=== PATIENT | female | born 1940 | race Two or more races ===

== ENCOUNTER 2023-02-13 18:33 | Emergency (ER) | payer OTHER ==
[~2023-02-13] VITALS: Ht 160 cm; Wt 71.7 kg
[~2023-02-13 18:33] MED LIST: INDERAL LA80 MG
[2023-02-13] MEDS ORDERED: LOSARTAN POTASS50 MG PO (18:57)
[2023-02-13] MEDS ORDERED: ZOLOFT25 MG PO (18:58)
[2023-02-13] MEDS ORDERED: SYNTHROID50 MCG PO (18:59)
[2023-02-13] MEDS ORDERED: CRESTOR20 MG PO (18:59)
[2023-02-13 23:27] LABS: HEMATOCRIT 38.4 % (36.0-45.00); HEMOGLOBIN 13.1 g/dL (12.0-15.00); MEAN CELL VOLUME 88.6 fL (80.00-100.00); MEAN CORPUSCULAR HEMOGLOBIN 30.2 pg (27.00-32.0); PLATELET COUNT 191 K/uL (150-450); RED BLOOD COUNT 4.34 M/uL (4.00-6.00); RED CELL DISTRIBUTION WIDTH 13.9 % (11.5-14.5)
[2023-02-13 23:34] LABS: URINE APPEARANCE Clear; URINE BILIRRUBIN Negative (NEGATIVE); URINE BLOOD Negative; URINE COLOR Yellow; URINE GLUCOSE Negative (NEGATIVE); URINE LEUKOCYTE Trace; URINE NITRATE Negative; URINE PROTEIN Negative (NEGATIVE); URINE UROBILINOGEN 0.2 E.U./dl
[2023-02-13 23:35] LABS: URINE BACTERIA 191.4 uL (0.0-1933); URINE EPITHELIAL CELLS 5.7 uL (0.0-38.8); URINE RBC 4.1 uL (0.0-20.8); URINE WBC 12.5 uL (0.0-23.2)
[2023-02-13 23:43] LABS: INR 0.98; PROTHROMBIN TIME 10.3 SECONDS (9.0-11.5)
[2023-02-13 23:45] LABS: CREATININE SERUM 0.73 mg/dL (0.55-1.02); GFR 76.51; POTASSIUM 3.55 mEq/L (3.5-5.1)
[2023-02-14] MEDS ORDERED: AMOX-CLAV 875-1 EAC1 PO (00:06)
== END 2023-02-14 00:31 | disposition home or self-care (01) ==
LOC: ER 18:34
PROVIDERS: General Practice
DX: L03.116 Cellulitis of left lower limb (principal); E03.9 Hypothyroidism, unspecified; I10 Essential (primary) hypertension; Z86.718 Personal history of other venous thrombosis and embolism
CPT/HCPCS: 36415; 96365; 96372; 99284; J1885; J2543